=== PATIENT | female | born 1990 | race Caucasian/White ===

== ENCOUNTER → 2017-04-22 | Outpatient (REF) | payer BC | LOC: M LAB REF 17:27 | PROVIDERS: ATTEND Emergency Medicine | DX: Z12.4 Encounter for screening for malignant neoplasm of cervix (principal) ==

== ENCOUNTER → 2017-10-30 | Outpatient (CLI) | payer BC ==
[2017-10-30 18:55] LABS: BASO % 0.4 % (0.0-1.0); EOS # 0.5 10^3/uL (0.0-0.50); EOS % 4.8 % (0.0-3.0); HEMATOCRIT 36.4 % (36.0-47.0); HEMOGLOBIN 12.3 g/dl (12.0-15.5); IMMATURE GRANULOCYTE % 0.5 % (0-3.0); LYMPH # 2.2 10^3/uL (1.5-6.5); LYMPH % 21.1 % (24.0-44.0); MEAN CORPUSCULAR HEMOGLOBIN 31.2 pg (27.0-33.0); MEAN CORPUSCULAR HGB CONC 33.8 g/dl (32.0-36.5); MEAN CORPUSCULAR VOLUME 92.4 fl (80.0-96.0); MONO # 0.8 10^3/uL (0.0-0.8); MONO % 7.5 % (0.0-5.0); NEUTROPHILS # 6.8 10^3/uL (1.8-7.7); NEUTROPHILS % 65.7 % (36.0-66.0); PLATELET COUNT, AUTOMATED 289 10^3/uL (150-450); RED BLOOD COUNT 3.94 10^6/uL (4.00-5.40); RED CELL DISTRIBUTION WIDTH 12.8 % (11.5-14.5); WHITE BLOOD COUNT 10.3 10^3/uL (4.0-10.0)
[2017-10-30 23:18] LABS: CHLAMYDIA DNA AMPLIFICATION NEGATIVE (NEGATIVE); GC DNA AMPLIFICATION NEGATIVE (NEGATIVE)
[2017-11-01 09:28] LABS: RUBELLA IgG QUALITATIVE IMMUNE (IMMUNE)
[2017-11-01 09:44] LABS: HBsAg Prenatal NEGATIVE (NEGATIVE)
[2017-11-01 09:58] LABS: HIV 1&2 SCREEN CENTAUR NEGATIVE (NEGATIVE)
[2017-11-01 09:58] LABS: HEPATITIS C VIRUS ABY INDEX 0.1 INDEX (<0.8)
== END ==
LOC: M SMT 13:48
DX: Z34.82 Encounter for supervision of other normal pregnancy, second trimester (principal); Z3A.12 12 weeks gestation of pregnancy
CPT/HCPCS: 86762

== ENCOUNTER → 2017-12-13 | Outpatient (CLI) | payer BC | LOC: M RAD 10:16 | DX: Z34.82 Encounter for supervision of other normal pregnancy, second trimester (principal); Z3A.19 19 weeks gestation of pregnancy | CPT/HCPCS: 76811 ==

== ENCOUNTER → 2018-01-24 | Outpatient (CLI) | payer BC | LOC: M RAD 12:49 | DX: Z36.9 Encounter for antenatal screening, unspecified (principal); Z3A.25 25 weeks gestation of pregnancy | CPT/HCPCS: 76816 ==

== ENCOUNTER → 2018-02-05 | Outpatient (CLI) | payer BC ==
[2018-02-05 14:09] LABS: BASO % 0.3 % (0.0-1.0); EOS # 0.3 10^3/uL (0.0-0.50); EOS % 2.4 % (0.0-3.0); IMMATURE GRANULOCYTE % 0.5 % (0-3.0); LYMPH # 1.4 10^3/uL (1.5-6.5); LYMPH % 13.2 % (24.0-44.0); MEAN CORPUSCULAR HEMOGLOBIN 29.8 pg (27.0-33.0); MEAN CORPUSCULAR HGB CONC 33.3 g/dl (32.0-36.5); MEAN CORPUSCULAR VOLUME 89.4 fl (80.0-96.0); MONO # 0.7 10^3/uL (0.0-0.8); MONO % 6.2 % (0.0-5.0); NEUTROPHILS # 8.3 10^3/uL (1.8-7.7); NEUTROPHILS % 77.4 % (36.0-66.0); PLATELET COUNT, AUTOMATED 252 10^3/uL (150-450); RED BLOOD COUNT 3.69 10^6/uL (4.00-5.40); RED CELL DISTRIBUTION WIDTH 12.8 % (11.5-14.5); WHITE BLOOD COUNT 10.8 10^3/uL (4.0-10.0)
[2018-02-05 14:37] LABS: GLUCOSE CHALLENGE TEST 1 HOUR 123 MG/DL (LESS THAN 140)
== END ==
LOC: M SMT 08:38
DX: Z34.02 Encounter for supervision of normal first pregnancy, second trimester (principal); Z36.89 Encounter for other specified antenatal screening
CPT/HCPCS: 82950

== ENCOUNTER 2018-03-25 08:38 | Outpatient (CLI) | payer BC ==
[2018-03-25 09:41] LABS: HEMATOCRIT 31.6 % (36.0-47.0); HEMOGLOBIN 10.2 g/dl (12.0-15.5); MEAN CORPUSCULAR HEMOGLOBIN 27.6 pg (27.0-33.0); MEAN CORPUSCULAR HGB CONC 32.3 g/dl (32.0-36.5); MEAN CORPUSCULAR VOLUME 85.6 fl (80.0-96.0); PLATELET COUNT, AUTOMATED 238 10^3/uL (150-450); RED BLOOD COUNT 3.69 10^6/uL (4.00-5.40); RED CELL DISTRIBUTION WIDTH 13.7 % (11.5-14.5)
== END 2018-03-25 11:40 | disposition home or self-care (01) ==
LOC: M LDO 08:38
DX: Z04.3 Encounter for examination and observation following other accident (principal); W00.9XXA Unspecified fall due to ice and snow, initial encounter; Y92.89 Other specified places as the place of occurrence of the external cause; Y93.89 Activity, other specified; Y99.8 Other external cause status; Z3A.33 33 weeks gestation of pregnancy
CPT/HCPCS: 76815

== ENCOUNTER → 2018-04-16 | Outpatient (REF) | payer BC | LOC: M LAB REF 13:20 | DX: Z34.83 Encounter for supervision of other normal pregnancy, third trimester (principal) | CPT/HCPCS: 87081 ==

== ENCOUNTER 2018-05-09 10:58 | Inpatient (IN) | payer BC ==
[~2018-05-09] VITALS: Ht 170.2 cm; Wt 103.9 kg
[2018-05-09] VITALS (32 sets, daily range): BP systolic 95–179; BP diastolic 50–101
[~2018-05-09 10:58] MED LIST: PRENTAB9 PO
[2018-05-09] MEDS ORDERED: ONDANSETRON 4 MG ORAL DISINTEGRATING TAB (Q0162 PER 1MG) SL PRN (13:15)
[2018-05-09] MEDS ORDERED: LACTATED RINGER'S 1000 ML IV ONE (13:15)
[2018-05-09] MEDS ORDERED: LR 1,000 ML IV SCH (13:15)
[2018-05-09] MEDS ORDERED: ONDANSETRON 4MG/2ML VIAL (J2405) IV ONE (13:15)
--- NOTE | 2018-05-09 14:47 | HPE ---
DATE OF ADMISSION: 05/09/2018 CHIEF COMPLAINT: Labor HISTORY OF PRESENT ILLNESS: Ruby is a 27-year-old G1, P0 at 39 weeks 4 days estimated gestational age by first trimester Ultrasound on 09/11/2017 with an estimated date of confinement of 05/12/2018, who was sent from the office. She is presenting complaining of contractions that are about 3-6 minutes apart. She was seen in the office this morning by Jennifer Urrutia, certified nurse electric meter installer who found her to be via sterile vaginal exam 4, 90, -2, soft anterior with scant bloody show. She is feeling baby move. She denies any leakage of fluid, bleeding, or unusual discharge. LABS: Blood type O+, antibody screen negative, rubella immune, VDRL nonreactive, hepatitis B surface antigen negative, HIV negative, hepatitis C nonreactive, chlamydia negative, gonorrhea negative, diabetes screen 123, GBS negative. Blood pressures in the office have ranged from 114-140 systolic over 68-78 diastolic. The patient has gained 53 pounds this . OBSTETRICAL ULTRASOUND: Most recent biophysical profile (BPP) showed a single intrauterine with cephalic presentation, anterior placenta, grade 1 no previa or abruption. Amniotic fluid volume normal. PAST OBSTETRICAL HISTORY: None. PAST MEDICAL HISTORY: Significant for in vitro fertilization (IVF). Transfer date was 08/17/2017. FAMILY HISTORY: Significant for diabetes and blood clots. MEDICATIONS: vitamins. ALLERGIES: None. SOCIAL HISTORY: The patient denies tobacco, drugs or alcohol. She is . EXAMINATION Vitals: Temperature 97.7, pulse 82, respiratory rate 16, blood pressure 99/54. Abdomen: Gravid. Sterile vaginal exam: 5 cm, 90% effaced -1 station heart monitor: Category I tracing [place]: Contractions about every 3-4 minutes. ASSESSMENT/PLAN: This is an intrauterine (IUP) at 39 weeks 4 days estimated gestational age who is presenting in active labor. 2. GBS negative: No need for antibiotics. 3. Anticipate spontaneous vaginal delivery. My faculty preceptor for this patient encounter was physically present during the encounter and was fully available. All aspects of the patient interview, examination, medical decision making process, and medical care plan development were reviewed and approved by the faculty preceptor. The faculty preceptor is aware and concurs with the plan as stated in the body of this note and will attest to such by his/her co-signature.
[2018-05-09 15:33] LABS: HEMATOCRIT 32.7 % (36.0-47.0); HEMOGLOBIN 10.6 g/dl (12.0-15.5); MEAN CORPUSCULAR HEMOGLOBIN 25.4 pg (27.0-33.0); MEAN CORPUSCULAR HGB CONC 32.4 g/dl (32.0-36.5); MEAN CORPUSCULAR VOLUME 78.4 fl (80.0-96.0); PLATELET COUNT, AUTOMATED 260 10^3/uL (150-450); RED BLOOD COUNT 4.17 10^6/uL (4.00-5.40); WHITE BLOOD COUNT 19.7 10^3/uL (4.0-10.0)
[2018-05-09] MEDS ORDERED: FENTANYL 2MCG/ML ROPIVACAINE 0.2% IN 0.9% NACL 100ML IVBAG As Ordered ONE (15:39)
[2018-05-09] MEDS ORDERED: REFRIGERATOR IV KEYS XX PRN (16:45)
[2018-05-09] MEDS ORDERED: EPIDURAL/PCA KEYS XX PRN (16:45)
[2018-05-09] MEDS ORDERED: FENTANYL/ROPIVACAINE/NACL BAG 100 ML EPIDURAL SCH (16:45)
[2018-05-09] MEDS ORDERED: EPIDURAL COMMENT XX SCH (16:45)
[2018-05-09] MEDS ORDERED: LACTATED RINGER'S 1000 ML IV PRN (16:45)
[2018-05-09] MEDS ORDERED: NALOXONE INJ 0.4 MG/1 ML VIAL (J2310) IV PRN (16:45)
[2018-05-09] MEDS ORDERED: ePHEDrine SULFATE 25 MG/5 ML(5MG/ML) SYRINGE IV PRN (16:45)
[2018-05-09] MEDS ORDERED: diphenhydrAMINE INJ 50MG/ML VIAL (J1200) IV PRN (16:45)
[2018-05-09] MEDS ORDERED: ONDANSETRON 4MG/2ML VIAL (J2405) IV PRN (16:45)
--- NOTE | 2018-05-09 17:06 | IPNPDOC ---
Text Note Date of Service The patient was seen on 05/09/18. NOTE Comfortable with epidural Feeling pressure UC 3-4 minutes apart, moderate FH 135, moderate variability, Cat II with hypotension SVE 8/100/0 AROM moderate thin meconium stained fluid IV fluid bolus Anticipate NSVB VS,Fishbone, I+O VS, Fishbone, I+O Laboratory Tests 05/09/18 15:21 Red Blood Count 4.17, Mean Corpuscular Volume 78.4 L, Mean Corpuscular Hemoglobin 25.4 L, Mean Corpuscular Hemoglobin Concent 32.4, Red Cell Distribution Width 15.9 H Vital Signs Date Time Temp Pulse Resp B/P (MAP) Pulse Ox O2 Delivery O2 Flow Rate FiO2 05/09/18 15:34 87 127/65 (85) 05/09/18 14:51 16 05/09/18 14:51 97.5 Chanell Vincent CNM May 09, 2018 17:06
[2018-05-09] MEDS ORDERED: OXYTOCIN 30 UNITS IN 0.9% NaCl 500ML IV BAG (J2590) As Ordered ONE (18:13)
[2018-05-09 18:37] LABS: CORD GAS ABE A -2.8; CORD GAS HCO3 A 22.5 MEQ/L; CORD GAS O2 SAT A 33.1 %; CORD GAS PCO2 A 41.3 mmHg; CORD GAS PH A 7.355 UNITS; CORD GAS PO2 A 18.3 mmHg; CORD GAS SBC A 20.5 MEQ/L; CORD GAS TCO2 A 23.8 MEQ/L
[2018-05-09 18:37] LABS: CORD GAS HCO3 V 18.4 MEQ/L; CORD GAS O2 SAT V 57.9 %; CORD GAS PCO2 V 30.4 mmHg; CORD GAS PH V 7.399 UNITS; CORD GAS PO2 V 25.5 mmHg; CORD GAS SBC V 19.4 MEQ/L; CORD GAS TCO2 V 19.3 MEQ/L
[2018-05-09] MEDS ORDERED: OXYTOCIN DRIP 30 UNITS in APPROPRIATE DILUENT 1 EA IV SCH (19:06)
[2018-05-09] MEDS ORDERED: DIBUCAINE 1% OINTMENT 30GM TOP PRN (19:15)
[2018-05-09] MEDS ORDERED: METHYLERGONOVINE MALEATE 0.2 MG TAB PO PRN (19:15)
[2018-05-09] MEDS ORDERED: DOCUSATE SODIUM 100 MG CAP PO PRN (19:15)
[2018-05-09] MEDS ORDERED: LIDOCAINE 1% MDV 20ML VIAL INFIL ONE (19:15)
[2018-05-09] MEDS ORDERED: ANUSOL HC CREAM 30GM TOP PRN (19:15)
[2018-05-09] MEDS ORDERED: MEASLES,MUMPS,RUBELLA VACCINE INJ (MMR-II) (90707) SC SCH (19:15)
[2018-05-09] MEDS ORDERED: MOM 30ML SUSPENSION UDC PO PRN (19:15)
[2018-05-09] MEDS ORDERED: RHOGAM 300 MCG (1500 IU) INJ (J2790) IM SCH (19:15)
[2018-05-10] MEDS: IBUPROFEN 800 MG TAB PO PRN ×3 (04:38→16:43)
[2018-05-10 05:51] VITALS: BP 115/63
--- NOTE | 2018-05-10 07:13 | IPNPDOC ---
Text Note Date of Service The patient was seen on 05/10/18. NOTE PP #1 Feels well. Adequate pain management. Voiding VSS, afebrile, normotensive Breasts soft, nipples intact Fundus firm, NT, down 1 FB Lochia rubra light without raman Perineum well approximated without edema PP #1 Routine care. Anticipate D/C ayad VS,Fishbone, I+O VS, Fishbone, I+O Laboratory Tests 05/09/18 15:21 Red Blood Count 4.17, Mean Corpuscular Volume 78.4 L, Mean Corpuscular Hemoglobin 25.4 L, Mean Corpuscular Hemoglobin Concent 32.4, Red Cell Distribution Width 15.9 H Vital Signs Date Time Temp Pulse Resp B/P (MAP) Pulse Ox O2 Delivery O2 Flow Rate FiO2 05/10/18 05:51 98.5 96 18 115/63 (80) I&O- Last 24 Hours up to 6 AM 05/10/18 06:00 Intake Total 2850 ml Output Total 1200 ml Balance 1650 ml Chanell Vincent CNM May 10, 2018 07:13
[2018-05-10] MEDS: PRENATAL VITAMINS CHEWABLE TABLET PO SCH (08:11)
[2018-05-10] MEDS: ACETAMINOPHEN 500 MG TAB PO PRN ×3 (08:12→22:02)
--- NOTE | 2018-05-10 08:15 | DN ---
DATE: 05/09/2018 PREDELIVERY DIAGNOSIS: 39 weeks 4 days estimated gestation. POSTDELIVERY DIAGNOSIS: Delivered. PROCEDURE: Spontaneous vaginal delivery. PROVIDER: Mary Man D.O. PGY2 STEMMER MACHINE: Chanell Vincent, Certified Nurse Senior Formulation Scientist ANESTHESIA: Epidural. ESTIMATED BLOOD LOSS: 200 mL. FINDINGS: Female infant weighing 7 pounds 10 ounces or 3460 grams, scores 9 and 9. DELIVERY SUMMARY: After a short second stage, the patient spontaneously delivered a 7 pound 10 ounce female weighing 3460 grams under epidural anesthesia at 1823 hours. The delivered right occiput anterior, restituted to right occiput transverse, and there was a right posterior compound hand. No nuchal cord was noted. The shoulders delivered with ease followed by the corpus with thin meconium throughout. The infant cried spontaneously and was handed to the mother. scores were 9 and 9. The cord was doubly clamped and cut by the father of the baby. The placenta was delivered spontaneously via Schultze mechanism at 1828 hours and appeared to be intact. The patient received IV Pitocin immediately after delivery of the placenta. The patient had a second-degree perineal tear and a left sulcus tear that were repaired with #3-0 Rapide in the usual fashion. Sponges, instrument and needle counts were correct. The parents have named their baby Marlen. My faculty preceptor for this patient encounter was physically present during the encounter and was fully available. All aspects of the patient interview, examination, medical decision making process, and medical care plan development were reviewed and approved by the faculty preceptor. The faculty preceptor is aware and concurs with the plan as stated in the body of this note and will attest to such by his/her cosignature.
[2018-05-10 18:01] VITALS: BP 113/66
[2018-05-11 06:03] VITALS: BP 107/58
[2018-05-11] MEDS: PRENATAL VITAMINS CHEWABLE TABLET PO SCH (09:00)
[2018-05-11] MEDS: IBUPROFEN 800 MG TAB PO PRN (09:00)
--- NOTE | 2018-05-11 10:22 | NUR ---
Day 2 Status post , uncomplicated Subjective Pain is well controlled. Lochia decreasing and minimal. Voiding spontaneously. Tolerating a regular diet. Ambulating without any assistance. Denies any subjective fever/chills/nausea/vomiting/headache/visual changes/shortness of breath/chest pain. Formula feeding. Objective Vitals: Normotensive, normal heart rate, afebrile, adequate urine output. Heart: regular, rate, and rhythm. no murmurs/gallops/rubs Lungs: clear to auscultation bilaterally, no wheezes/crackles/rales/ronchi Abd: soft, nontender, nondistended, uterine fundus is 2cm below umbilicus and firm Ext: no significant edema, nontender, negative Bryce's bilaterally. Assessment/Plan: day 2. Recovering well. Hemodynamically stable, afebrile, good pain control. -Routine care -Discharge to home today. -Routine infectious, fever, pain, and bleeding precautions reviewed Charla Mills.O., F.A.C.O.G.
[2018-05-11] MEDS ORDERED: PRENTAB9 PO (11:16)
[2018-05-11] MEDS ORDERED: IBUP-1114 PO (11:16)
[2018-05-11] MEDS ORDERED: MAPA500T2 PO (11:16)
== END 2018-05-11 11:55 | disposition home or self-care (01) | DRG 560 ==
LOC: M LDO 10:58 → M LDI 14:30 → M OBS 20:30
PROVIDERS: ADMIT Advanced Practice Midwife; ATTEND Advanced Practice Midwife
PROC: 10E0XZZ Delivery of Products of Conception, External Approach (ICD-10-PCS; principal; 2018-05-09)
PROC: 0KQM0ZZ Repair Perineum Muscle, Open Approach (ICD-10-PCS; 2018-05-09)
PROC: 10907ZC Drainage of Amniotic Fluid, Therapeutic from Products of Conception, Via Natural or Artificial Opening (ICD-10-PCS; 2018-05-09)
DX: O32.6XX0 Maternal care for compound presentation, not applicable or unspecified (principal); O77.0 Labor and delivery complicated by meconium in amniotic fluid; Z3A.39 39 weeks gestation of pregnancy; O70.1 Second degree perineal laceration during delivery; Z37.0 Single live birth

== ENCOUNTER → 2018-09-03 | Outpatient (CLI) | payer BC ==
[~2018-09-03] MED LIST changes: +IBUP-1114 PO; +MAPA500T2 PO
[2018-09-03 14:23] LABS: FREE T4 0.89 NG/DL (0.76-1.46); THYROID STIMULATING HORMONE 1.82 uIU/ML (0.358-3.740)
[2018-09-03 14:46] LABS: TOTAL 25(OH) VITAMIN D 16.9 NG/ML (30.0-100.0)
== END ==
LOC: M SMT 08:40
PROVIDERS: ATTEND Advanced Practice Midwife
DX: F41.9 Anxiety disorder, unspecified (principal)
CPT/HCPCS: 36415; 82306; 84439; 84443; G0123

== ENCOUNTER → 2022-04-12 | Outpatient (CLI) | payer BC ==
[2022-04-12 16:32] LABS: CHOLESTEROL LEVEL 184 MG/DL (<200); CHOLESTEROL RISK RATIO 3.36 (<5); HDL CHOLESTEROL 54.6 MG/DL (>40); LDL CHOLESTEROL 110.4 MG/DL (<100); NON-HDL-C 129 MG/DL; TRIGLYCERIDES LEVEL 95 MG/DL (<150)
[2022-04-12 16:34] LABS: RHEUMATOID FACTOR QUANT < 3.5 IU/ML (<14)
[2022-04-12 16:35] LABS: FOLATE 12.52 NG/ML (>5.4); VITAMIN B12 LEVEL 522 PG/ML (211-911)
[2022-04-12 17:36] LABS: HEMOGLOBIN A1c 4.9 % (4.0-6.0)
[2022-04-13 12:22] LABS: DRVV SCREEN 36.2 SEC
[2022-04-20 17:10] LABS: ANCA-ATYPICAL <1:20 titer (Neg:<1:20); ANTI DS-DNA AB Negative (Negative); ANTI THROMBIN 3 ANTIGEN IMMUNO 96 % (72-124); ANTI THROMBIN 3 FUNCT ACTIVITY 114 % (75-135); ANTINUCLEAR ANTIBODIES DIRECT Negative (Negative); CARDIOLIPIN IGA ANTIBODY <9 APL U/mL (0-11); CARDIOLIPIN IGG ANTIBODY <9 GPL U/mL (0-14); CARDIOLIPIN IGM ANTIBODY <9 MPL U/mL (0-12); CYTOPLASMIC NEUTROP AB ANCA-C <1:20 titer (Neg:<1:20); FACTOR VIII ACTIVITY 73 % (56-140); HOMOCYST(E)INE SERUM 8.4 umol/L (0.0-14.5); PERINUCLEAR AB ANCA-P <1:20 titer (Neg:<1:20); PROTEIN C FUNCTIONAL ACTIVITY 159 % (73-180); PROTEIN S FUNCTIONAL ACTIVITY 74 % (63-140); SJOGREN'S ANTI SS-A <0.2 AI (0.0-0.9); SJOGREN'S ANTI SS-B <0.2 AI (0.0-0.9); VITAMIN B1 LEVEL WHOLE BLOOD 121.2 nmol/L (66.5-200.0); VITAMIN B6,PYRIDOXAL PHOSPHATE 15.2 ug/L (3.4-65.2)
== END ==
LOC: M LABDRWAD 07:50
PROVIDERS: ATTEND Psychiatry & Neurology Neurology
DX: I63.9 Cerebral infarction, unspecified (principal)

== ENCOUNTER → 2022-06-21 | Outpatient (CLI) | payer BC | LOC: M LABSMTC 11:42 | PROVIDERS: ATTEND Anesthesiology | DX: Z01.812 Encounter for preprocedural laboratory examination (principal) ==

== ENCOUNTER 2022-06-22 11:45 | Day surgery (SDC) | payer BC ==
[~2022-06-22] VITALS: Ht 170.2 cm; Wt 101.6 kg
[2022-06-22] MEDS ORDERED: MIDAZOLAM INJ 2MG/2ML VIAL As Ordered ONE ×4 (12:55→13:43)
[2022-06-22] MEDS ORDERED: propofoL 200 MG/20 ML VIAL As Ordered ONE (12:55)
[2022-06-22] MEDS ORDERED: LIDOCAINE 2% 100MG/5ML SDV (FOR ANES.) As Ordered ONE (12:55)
[2022-06-22] MEDS ORDERED: fentaNYL 100 MCG/2 ML INJECTION As Ordered ONE (12:56)
[2022-06-22] MEDS ORDERED: LIDOCAINE VISCOUS 2% SOLN 15ML UDC As Ordered ONE (13:38)
[2022-06-22 14:19] VITALS: BP 126/76
== END 2022-06-22 14:55 | disposition home or self-care (01) ==
LOC: M OPP 11:45
PROVIDERS: ATTEND Internal Medicine Cardiovascular Disease
DX: I63.9 Cerebral infarction, unspecified (principal); Q21.11 Secundum atrial septal defect
CPT/HCPCS: 93312; 93320; 93325; J2250; J3010

== ENCOUNTER → 2022-06-27 | Outpatient (REF) | payer BC ==
[2022-06-27 14:26] LABS: INR 0.94; PROTHROMBIN TIME 12.8 SECONDS (12.5-14.5)
== END ==
LOC: M LABDRWAD 13:33
PROVIDERS: ATTEND Internal Medicine Cardiovascular Disease
DX: Z79.01 Long term (current) use of anticoagulants (principal); I63.9 Cerebral infarction, unspecified; Q21.10 Atrial septal defect, unspecified

== ENCOUNTER → 2022-07-09 | Outpatient (REF) | payer BC ==
[2022-07-09 14:10] LABS: INR 1.17; PROTHROMBIN TIME 15.1 SECONDS (12.5-14.5)
== END ==
LOC: M LABDRWAD 13:08
PROVIDERS: ATTEND Physician Assistant
DX: Z79.01 Long term (current) use of anticoagulants (principal); I63.9 Cerebral infarction, unspecified; Q21.10 Atrial septal defect, unspecified

== ENCOUNTER → 2022-07-17 | Outpatient (REF) | payer BC ==
[2022-07-17 13:56] LABS: INR 1.6; PROTHROMBIN TIME 19.3 SECONDS (12.5-14.5)
== END ==
LOC: M LABDRWAD 12:34
PROVIDERS: ATTEND Internal Medicine Cardiovascular Disease
DX: I63.9 Cerebral infarction, unspecified (principal); Q21.10 Atrial septal defect, unspecified; Z79.01 Long term (current) use of anticoagulants

== ENCOUNTER → 2022-07-24 | Outpatient (REF) | payer BC ==
[2022-07-24 13:31] LABS: INR 1.53; PROTHROMBIN TIME 18.7 SECONDS (12.5-14.5)
== END ==
LOC: M LABDRWAD 12:25
PROVIDERS: ATTEND Physician Assistant
DX: I63.9 Cerebral infarction, unspecified (principal); Q21.10 Atrial septal defect, unspecified; Z79.01 Long term (current) use of anticoagulants

== ENCOUNTER → 2022-08-01 | Outpatient (REF) | payer BC ==
[2022-08-01 13:51] LABS: INR 1.73; PROTHROMBIN TIME 20.6 SECONDS (12.5-14.5)
== END ==
LOC: M LABDRWAD 12:44
PROVIDERS: ATTEND Physician Assistant
DX: I63.9 Cerebral infarction, unspecified (principal); Q21.10 Atrial septal defect, unspecified; Z79.01 Long term (current) use of anticoagulants

== ENCOUNTER → 2022-08-15 | Outpatient (CLI) | payer BC ==
[2022-08-15 13:29] LABS: INR 1.95; PROTHROMBIN TIME 22.6 SECONDS (12.5-14.5)
== END ==
LOC: M LABDRWAD 07:46
PROVIDERS: ATTEND Physician Assistant
DX: Z79.01 Long term (current) use of anticoagulants (principal); I63.9 Cerebral infarction, unspecified; Q21.10 Atrial septal defect, unspecified

== ENCOUNTER → 2022-08-23 | Outpatient (CLI) | payer BC ==
[2022-08-23 14:12] LABS: BASO # 0.1 10^3/uL (0.0-0.2); BASO % 0.7 % (0.0-1.0); EOS # 0.3 10^3/uL (0.0-0.5); EOS % 4.5 % (0.0-3.0); HEMATOCRIT 40.4 % (36.0-47.0); LYMPH % 28.7 % (24.0-44.0); MEAN CORPUSCULAR HEMOGLOBIN 29.3 pg (27.0-33.0); MEAN CORPUSCULAR HGB CONC 32.2 g/dl (32.0-36.5); MEAN CORPUSCULAR VOLUME 91.2 fl (80.0-96.0); MONO # 0.5 10^3/uL (0.0-0.8); NEUTROPHILS # 4.2 10^3/uL (1.5-8.5); PLATELET COUNT, AUTOMATED 256 10^3/uL (150-450); RED BLOOD COUNT 4.43 10^6/uL (4.00-5.40); WHITE BLOOD COUNT 7.1 10^3/uL (4.0-10.0)
[2022-08-23 14:40] LABS: BLOOD UREA NITROGEN 12 MG/DL (9-23); CARBON DIOXIDE LEVEL 28 MMOL/L (20-31); CHLORIDE LEVEL 104 MMOL/L (98-107); GLOMERULAR FILTRATION RATE > 60.0 (>60); GLUCOSE, FASTING 84 MG/DL (60-100); POTASSIUM SERUM 4.3 MMOL/L (3.5-5.1); SODIUM LEVEL 137 MMOL/L (136-145)
== END ==
LOC: M LABDRWAD 07:42
PROVIDERS: ATTEND Internal Medicine Cardiovascular Disease
DX: Q21.10 Atrial septal defect, unspecified (principal); Q21.11 Secundum atrial septal defect

== ENCOUNTER → 2023-03-02 | Outpatient (REF) | payer BC | LOC: M LAB REF 17:36 | PROVIDERS: ATTEND Physician Assistant Medical | DX: J02.9 Acute pharyngitis, unspecified (principal) ==

== ENCOUNTER 2024-05-18 17:27 | Emergency (ER) | payer BC ==
[~2024-05-18] VITALS: Ht 170.2 cm; Wt 97.7 kg
[2024-05-18] MEDS ORDERED: SUMA100T2 PO (17:42)
[2024-05-18] MEDS ORDERED: AMIT10TA7 PO (17:42)
[2024-05-18] MEDS ORDERED: KETOROLAC 30 MG/ML 1ML VIAL IM ONE (18:45)
[2024-05-18] MEDS: METOCLOPRAMIDE INJ 10MG/2ML VIAL IV ONE (18:59)
[2024-05-18] MEDS: diphenhydrAMINE 50MG/ML VIAL IV ONE (18:59)
[2024-05-18] MEDS: KETOROLAC 30 MG/ML 1ML VIAL IV ONE (18:59)
[2024-05-18] MEDS: NS (Normal Saline) 0.9% 1,000 ML IV ONE (19:00)
[2024-05-18 20:12] VITALS: BP 118/72; TEMP 98.8; O2SAT 100
== END 2024-05-18 20:15 | disposition home or self-care (01) ==
LOC: M ED 17:27
DX: G43.911 Migraine, unspecified, intractable, with status migrainosus (principal); Z79.1 Long term (current) use of non-steroidal anti-inflammatories (NSAID); Z79.899 Other long term (current) drug therapy
CPT/HCPCS: 96361; 96374; 99283; J1200; J1885; J2765